=== PATIENT | female | born 1995 | race Caucasian/White ===

== ENCOUNTER 2017-12-13 00:58 | Emergency (ER) | payer MEDICAID ==
[2017-12-13] MEDS: ACETAMINOPHEN 500 MG TAB PO (01:05)
== END 2017-12-13 01:09 | disposition home or self-care (01) ==
LOC: E/R 00:58
DX: O9A.219 Injury, poisoning and certain other consequences of external causes complicating pregnancy, unspecified trimester (principal); S00.33XA Contusion of nose, initial encounter; S39.91XA Unspecified injury of abdomen, initial encounter; W01.198A Fall on same level from slipping, tripping and stumbling with subsequent striking against other object, initial encounter; Y92.9 Unspecified place or not applicable; Z3A.00 Weeks of gestation of pregnancy not specified
CPT/HCPCS: 99282; Z7502

== ENCOUNTER 2017-12-13 01:18 | Outpatient (CLI) | payer MEDICAID | END 2017-12-13 02:55 | disposition home or self-care (01) | LOC: OBT 01:18 → L-D 01:19 → OBT 02:55 | DX: O9A.213 Injury, poisoning and certain other consequences of external causes complicating pregnancy, third trimester (principal); S02.2XXA Fracture of nasal bones, initial encounter for closed fracture; W19.XXXA Unspecified fall, initial encounter; Y92.89 Other specified places as the place of occurrence of the external cause; Z3A.28 28 weeks gestation of pregnancy | CPT/HCPCS: Z7500 ==